=== PATIENT | female | born 1975 | race Caucasian/White ===

== ENCOUNTER 2022-01-30 10:58 | Emergency (ER) | payer BC, OTHER ==
[2022-01-30 11:22] LABS: Urine Blood 3+ (Negative); Urine Glucose Trace (Negative); Urine Protein 3+ (Negative); Urine pH 5.5 (5.0-7.0)
[2022-01-30] MEDS ORDERED: PHENAZOPYRIDINE 100MG TAB PO ONE (11:35)
[2022-01-30] MEDS ORDERED: CEFTRIAXONE 1000 MG/VIAL ONE (11:36)
[2022-01-30] MEDS ORDERED: MORPHINE 4 MG/ML SYR ONE ×2 (11:36→12:49)
[2022-01-30] MEDS ORDERED: NA CHLORIDE 0.9% 1,000 ML ONE (11:37)
[2022-01-30] MEDS ORDERED: FAMOTIDINE 20 MG/2 ML VIAL IV ONE (11:37)
[2022-01-30] MEDS ORDERED: ONDANSETRON 4 MG/2 ML VIAL ONE (11:37)
[2022-01-30] MEDS ORDERED: NA CHLORIDE 0.9% 50 ML ONE (11:37)
[2022-01-30 11:38] LABS: Absolute Lymphocytes (CBC) 3.6 K/uL (0.7-4.9); Hematocrit 43.8 % (36.0-45.0); Lymphocytes % 26.3 % (15.3-44.8); MPV 8.6 fL (7.6-11.3); RBC Red Blood Cell Count 5.14 M/uL (3.86-4.86)
[2022-01-30 11:53] LABS: Albumin 3.8 g/dL (3.4-5.0); Bilirubin Total 0.3 mg/dL (0.2-1.0); Potassium 3.7 mmol/L (3.5-5.1); Protein, Total 7.8 g/dL (6.4-8.2)
[2022-01-30] MEDS ORDERED: HYDROMORPHONE HCL 1 MG/ML INJ ONE (13:26)
--- NOTE | 2022-01-30 13:49 | RAD REPORT ---
EXAM DESCRIPTION: CT - Stone Protocol - 01/30/2022 1:38 pm CLINICAL HISTORY: Flank pain. Abdominal pain, acute, nonlocalized COMPARISON: CT ABD PELVIS W CONTRAST dated 01/10/2012 TECHNIQUE: Axial images were obtained without oral or IV contrast. Lack of contrast limits solid org an and vascular assessment. The [id number] spans the entirety of the system partially obscuring uppermost abdomen and lung bases. Coronal reformatted images were obtained and reviewed. All CT scans are performed using dose optimization technique as appropriate and may include automated exposure control or mA/KV adjustment according to patient size. FINDINGS: The lower lung dolan are clear. Cholecystectomy. Imaged portions of the liver and spleen show no suspicious findings on non-contrast imaging. The panc reas and adrenal glands are normal. No pathologic lymphadenopathy in the abdomen or pelvis. Tiny punctate calculus inferior left kidney. No hydronephrosis. Small fat containing ventral hernia s upraumbilical region. No bowel obstruction, free air, free fluid or abscess. Normal appendix noted.Urinary bladder is incom pletely distended. No significant bony abnormality. IMPRESSION: Tiny punctate left renal calculus. No hydronephrosis.
[2022-01-30] MEDS ORDERED: HYDROMORPHONE HCL 2 MG/ML inj ONE (14:58)
[2022-01-30] MEDS ORDERED: NA CHLORIDE 0.9% 100 ML ONE (14:58)
--- NOTE | 2022-01-30 15:35 | RAD REPORT ---
EXAM DESCRIPTION: CTAbdomen Pelvis W Contrast - 01/30/2022 3:29 pm CLINICAL HISTORY: Abdominal pain. Abdominal pain, acute, nonlocalized COMPARISON: Extrem Venous W Compress Kvng dated 10/26/2021T ABD PELVIS W CONTRAST dated 01/10/2012 TECHNIQUE: Biphasic CT imaging of the abdomen and pelvis was performed with 100 ml non-ionic IV cont rast. All CT scans are performed using dose optimization technique as appropriate and may include automated exposure control or mA/KV adjustment according to patient size. FINDINGS: The lung bases are clear.Cholecystectomy. The liver, spleen, pancreas, adrenal glands and kidneys are within normal limits. No bowel obstruction, free air, free fluid or abscess. Small fat containing ventral hernia is noted. The appendix is normal. No evidence of significant lymphadenopathy. No suspicious bony findings. IMPRESSION: No acute intra-abdominal or pelvic finding.
[2022-01-30] MEDS ORDERED: DIPHENHYDRAMINE 50 MG/ML VIAL ONE ×2 (16:09→17:19)
--- NOTE | 2022-01-30 17:19 | ER ---
Nurse's Notes [facility] Name: Jil Gerardo Age: 47 yrs Sex: Female : 1975 Arrival Date: 01/30/2022 Time: 11:00 Bed 7 Private MD: Diagnosis: Acute cystitis;Gross hematuria;Hematuria, unspecified;UTI/ Urinary tract infection, site not specified;Left renal calculus without hydronephrosis Presentation: 01/30 11:08 Chief complaint: Patient states: UTI and blood in urine this morning, denies back pain, iw reports suprapubic pain , pt shaking in triage. Coronavirus screen: At this time, the client does not indicate any symptoms associated with coronavirus-19. Ebola Screen: Patient negative for fever greater than or equal to 101.5 degrees Fahrenheit, and additional compatible Ebola Virus Disease symptoms Patient denies exposure to infectious person. Patient denies travel to an Ebola-affected area in the 21 days before illness onset. No symptoms or risks identified at this time. Initial Sepsis Screen: Does the patient meet any 2 criteria? Does the patient have a suspected source of infection? No. Patient's initial sepsis screen is negative. Risk Assessment: Do you want to hurt yourself or someone else? Patient reports no desire to harm self or others. Onset of symptoms was January 30, 2022. 11:08 Method Of Arrival: Ambulatory iw 11:08 Acuity: KULDIP 3 iw Historical: - Allergies: 11:09 No Known Allergies; iw - Home Meds: 11:09 tramadol Oral [Active]; citalopram oral [Active]; iw - PMHx: 11:09 Fibromyalgia; iw - PSHx: 11:09 section; partial hysterectomy; Cholecystectomy; Tonsillectomy; iw - Immunization history:: Adult Immunizations up to date. - Social history:: Smoking status: unknown. Screenin:43 Abuse screen: Denies threats or abuse. Nutritional screening: No deficits noted. jd3 Tuberculosis screening: No symptoms or risk factors identified. Fall Risk IV access (20 points). Ambulatory Aid- None/Bed Rest/Nurse Assist (0 pts). Gait- Normal/Bed Rest/Wheelchair (0 pts) Mental Status- Oriented to own ability (0 pts). Total Wilson Fall Scale indicates No Risk (0-24 pts). Assessment: 11:41 General: Appears uncomfortable, Behavior is cooperative, appropriate for age, anxious. jd3 Pain: Complains of pain in suprapubic area Quality of pain is described as sharp, shooting, stabbing, tender. Neuro: Jones Agitation-Sedation Scale (RASS): +1 Restless Level of Consciousness is awake, alert, obeys commands, Oriented to person, place, time, situation. Cardiovascular: Denies chest pain, Capillary refill < 3 seconds Patient's skin is warm and dry. Respiratory: Airway is patent Respiratory effort is even, unlabored, Respiratory pattern is regular, symmetrical, Denies cough, shortness of breath. GI: Abdomen is non-distended, Abd is soft X 4 quads Abdomen is tender to palpation in suprapubic area, right lower quadrant and left lower quadrant Reports lower abdominal pain, nausea. : Urine is blood tinged, Reports burning with urination, cramping, pain in suprapubic area with urination, urgency. EENT: No signs and/or symptoms were reported regarding the EENT system. Derm: Skin is intact, Skin is dry, Skin is normal, Skin temperature is warm. Musculoskeletal: Circulation, motion, and sensation intact. Range of motion: intact in all extremities. 11:50 Reassessment: Patient and/or family updated on plan of care and expected duration. Pain jd3 level reassessed. Patient is alert, oriented x 3, equal unlabored respirations, skin warm/dry/pink. pt reports medications starting to take the edge off of the pain. 12:48 Reassessment: Patient and/or family updated on plan of care and expected duration. Pain jd3 level reassessed. Patient is alert, oriented x 3, equal unlabored respirations, skin warm/dry/pink. pt reporting sharp pain that started in the left flank. pt reported pain is a stabbing pain that comes around to the front of her abdomen. 13:25 Reassessment: Patient appears in no apparent distress at this time. Patient and/or jd3 family updated on plan of care and expected duration. Pain level reassessed. Patient is alert, oriented x 3, equal unlabored respirations, skin warm/dry/pink. pt reporting pain returning again, provider notified. 14:16 Reassessment: Patient appears in no apparent distress at this time. Patient and/or jd3 family updated on plan of care and expected duration. Pain level reassessed. Patient is alert, oriented x 3, equal unlabored respirations, skin warm/dry/pink. Patient states feeling better. 16:41 Reassessment: Patient appears in no apparent distress at this time. Patient and/or jd3 family updated on plan of care and expected duration. Pain level reassessed. Patient is alert, oriented x 3, equal unlabored respirations, skin warm/dry/pink. Vital Signs: 11:08 BP 160 / 95; Pulse 130; Resp 18 S; Temp 96.5; Pulse Ox 97% on R/A; Weight 90.72 kg; iw Height 5 ft. 6 in. (167.64 cm); 12:48 BP 147 / 61; Pulse 105; Resp 18 S; Pulse Ox 99% on R/A; jd3 13:25 BP 121 / 77; Pulse 97; Resp 18 S; Pulse Ox 99% on R/A; jd3 16:42 BP 149 / 79; Pulse 93; Resp 18 S; Pulse Ox 99% on R/A; jd3 11:08 Body Mass Index 32.28 (90.72 kg, 167.64 cm) ED Course: 11:00 Patient arrived in ED. am2 11:01 Pablo Hyde MD is Attending Physician. kdr 11:09 Triage completed. iw 11:26 More Lackey, RN is Primary Nurse. jl7 11:27 Julio Andrews, RN is Primary Nurse. jd3 11:31 Initial lab(s) drawn, by va, sent to lab. Inserted saline lock: 20 gauge in right jl7 antecubital area, using aseptic technique. Blood collected. 11:40 Arm band placed on. jd3 11:44 Patient has correct armband on for positive identification. Bed in low position. Call j light in reach. Side rails up X 1. Adult w/ patient. Pulse ox on. NIBP on. 11:50 Urine Culture Sent. jd3 11:51 Julio Andrews, RN is Primary Nurse. jd3 13:34 Assisted to bathroom. jd3 13:40 Stone Protocol In Process Unspecified. EDMS 15:30 CT Abd/Pelvis - IV Contrast Only In Process Unspecified. EDMS 17:43 No provider procedures requiring assistance completed. IV discontinued, intact, jl7 bleeding controlled, No redness/swelling at site. Pressure dressing applied. Administered Medications: 11:39 Drug: NS 0.9% 1000 ml Route: IV; Rate: 1 bolus; Site: right antecubital; jd3 13:23 Follow up: Response: No adverse reaction; IV Status: Completed infusion jd3 11:39 Drug: Pepcid (famotidine) 20 mg Route: IVP; Site: right antecubital; jd3 13:23 Follow up: Response: No adverse reaction jd3 11:39 Drug: morphine 4 mg Route: IVP; Infused Over: 4 mins; Site: right antecubital; jd3 12:30 Follow up: Response: No adverse reaction; RASS: Alert and Calm (0) jd3 11:39 Drug: Pyridium (phenazopyridine) 200 mg Route: PO; jd3 13:24 Follow up: Response: No adverse reaction jd3 11:40 Drug: Zofran (Ondansetron) 4 mg Route: IVP; Site: right antecubital; jd3 12:40 Follow up: Response: No adverse reaction jd3 11:45 Drug: Rocephin - (cefTRIAXone) 1 grams Route: IVPB; Infused Over: 30 mins; Site: right [facility] antecubital; 12:00 Follow up: Response: No adverse reaction; IV Status: Completed infusion jd3 12:48 Drug: morphine 4 mg Route: IVP; Infused Over: 2 mins; Site: right antecubital; jd3 13:24 Follow up: Response: No adverse reaction; RASS: Restless (+1) jd3 13:23 Drug: Dilaudid (HYDROmorphone) 1 mg Route: IVP; Site: right antecubital; jd3 14:20 Follow up: Response: No adverse reaction; RASS: Alert and Calm (0) jd3 14:58 Drug: Dilaudid (HYDROmorphone) 2 mg Route: IVP; Site: right antecubital; jd3 16:16 Follow up: Response: No adverse reaction jd3 16:05 Drug: Benadryl (diphenhydrAMINE) 25 mg Route: IVP; Site: right antecubital; jd3 17:00 Follow up: Response: No adverse reaction jd3 17:15 Drug: Benadryl (diphenhydrAMINE) 25 mg Route: IVP; Site: right antecubital; jd3 Medication: 11:43 VIS not applicable for this client. jd3 Outcome: 17:18 Discharge ordered by . kdr 17:43 Discharged to home via wheelchair, with family. jl7 17:43 Condition: stable 17:43 Discharge instructions given to patient, family, Instructed on discharge instructions, follow up and referral plans. medication usage, Demonstrated understanding of instructions, follow-up care, medications, Prescriptions given X 4. 17:43 Patient left the ED. jl7 Signatures: Dispatcher [employer] EDMS Pablo Hyde MD MD kdr Zuleima Callaway RN RN iw More Lackey RN RN jl7 Salma Oconnell Jonathon, RN RN jd3 Corrections: (The following items were deleted from the chart) 13:24 13:24 Response: No adverse reaction; RASS: Alert and Calm (0) jd3 jd3 14:17 14:16 Reassessment: Patient appears in no apparent distress at this time. No changes jd3 from previously documented assessment. Patient and/or family updated on plan of care and expected duration. Pain level reassessed. Patient is alert, oriented x 3, equal unlabored respirations, skin warm/dry/pink. jd3
--- NOTE | 2022-01-30 17:19 | EDPHYS ---
Physician Documentation [facility] Name: Jil Gerardo Age: 47 yrs Sex: Female : 1975 Arrival Date: 01/30/2022 Time: 11:00 Bed 7 Private MD: ED Physician Pablo Hyde HPI: 01/30 18:04 This 47 yrs old Female presents to ER via Ambulatory with complaints of Pain With kdr Urination, blood in urine. 13:57 Patient complains of hematuria that began this morning. She denies any other associated kdr pain. She has had some nausea but no vomiting. She reports that she is also having some suprapubic pain. In triage the patient was very tremulous. She has not had this before. While she appears uncomfortable, she does not appear toxic. Her mental status is appropriate.. Onset: The symptoms/episode began/occurred this morning. Severity of symptoms: At their worst the symptoms were severe incapacitating in the emergency department the symptoms have improved mildly. The patient has experienced similar episodes in the past, a few times. The patient has not recently seen a physician. Historical: - Allergies: 11:09 No Known Allergies; iw - Home Meds: 11:09 tramadol Oral [Active]; citalopram oral [Active]; iw - PMHx: 11:09 Fibromyalgia; iw - PSHx: 11:09 section; partial hysterectomy; Cholecystectomy; Tonsillectomy; iw - Immunization history:: Adult Immunizations up to date. - Social history:: Smoking status: unknown. ROS: 13:57 Constitutional: Negative for fever, chills, and weight loss, Eyes: Negative for injury, kdr pain, redness, and discharge, Neck: Negative for injury, pain, and swelling, Cardiovascular: Negative for chest pain, palpitations, and edema, Respiratory: Negative for shortness of breath, cough, wheezing, and pleuritic chest pain, Back: Negative for injury and pain, MS/Extremity: Negative for injury and deformity, Skin: Negative for injury, rash, and discoloration, Neuro: Negative for headache, weakness, numbness, tingling, and seizure activity. Psych: Negative for depression, anxiety, suicide ideation, homicidal ideation, and hallucinations, Allergy/Immunology: Negative for hives, rash, and allergies, Endocrine: Negative for neck swelling, polydipsia, polyuria, polyphagia, and marked weight changes, Hematologic/Lymphatic: Negative for swollen nodes, abnormal bleeding, and unusual bruising. 13:57 Abdomen/GI: Positive for abdominal pain, nausea, of the suprapubic area, Negative for abdominal cramps, abdominal distension, anorexia, dysphagia, hematemesis, black/tarry stool, rectal pain. Exam: 13:57 Constitutional: This is a well developed, well nourished patient who is awake, alert, kdr and in moderate distress. Head/Face: Normocephalic, atraumatic. Eyes: Pupils equal round and reactive to light, extra-ocular motions intact. Lids and lashes normal. Conjunctiva and sclera are non-icteric and not injected. Cornea within normal limits. Periorbital areas with no swelling, redness, or edema. Neck: Trachea midline, no thyromegaly or masses palpated, and no cervical lymphadenopathy. Supple, full range of motion without nuchal rigidity, or vertebral point tenderness. No Meningismus. Chest/axilla: Normal chest wall appearance and motion. Nontender with no deformity. No lesions are appreciated. Cardiovascular: Regular rate and rhythm with a normal S1 and S2. No gallops, murmurs, or rubs. Normal PMI, no JVD. No pulse deficits. Respiratory: Lungs have equal breath sounds bilaterally, clear to auscultation and percussion. No rales, rhonchi or wheezes noted. No increased work of breathing, no retractions or nasal flaring. Back: No spinal tenderness. No costovertebral tenderness. Full range of motion. Skin: Warm, dry with normal turgor. Normal color with no rashes, no lesions, and no evidence of cellulitis. MS/ Extremity: Pulses equal, no cyanosis. Neurovascular intact. Full, normal range of motion. Neuro: Awake and alert, GCS 15, oriented to person, place, time, and situation. Cranial nerves II-XII grossly intact. Motor strength 5/5 in all extremities. Sensory grossly intact. Cerebellar exam normal. Normal gait. Psych: Awake, alert, with orientation to person, place and time. Behavior, mood, and affect are within normal limits. 13:57 Abdomen/GI: Inspection: abdomen appears normal, obese Bowel sounds: active, all quadrants, Palpation: soft, in all quadrants, nontender, in all quadrants, mild abdominal tenderness, in the suprapubic area. Vital Signs: 11:08 BP 160 / 95; Pulse 130; Resp 18 S; Temp 96.5; Pulse Ox 97% on R/A; Weight 90.72 kg; iw Height 5 ft. 6 in. (167.64 cm); 12:48 BP 147 / 61; Pulse 105; Resp 18 S; Pulse Ox 99% on R/A; jd3 13:25 BP 121 / 77; Pulse 97; Resp 18 S; Pulse Ox 99% on R/A; jd3 16:42 BP 149 / 79; Pulse 93; Resp 18 S; Pulse Ox 99% on R/A; jd3 11:08 Body Mass Index 32.28 (90.72 kg, 167.64 cm) iw MDM: 13:57 Data reviewed: vital signs, nurses notes, lab test result(s), radiologic studies. kdr Counseling: I had a detailed discussion with the patient and/or guardian regarding: the historical points, exam findings, and any diagnostic results supporting the discharge/admit diagnosis, lab results, radiology results. 17:18 Patient medically screened. [facility] 01/30 11:01 Order name: Urine Culture [facility] 01/30 11:22 Order name: Urine Dipstick-Ancillary; Complete Time: 12:43 [facility] 01/30 11:25 Order name: Urine --Ancillary (enter results); Complete Time: 12:43 01/30 11:25 Order name: CBC with Diff; Complete Time: 12:43 [facility] 01/30 11:25 Order name: CMP; Complete Time: 12:43 [facility] 01/30 11:25 Order name: Lipase; Complete Time: 12:43 [facility] 01/30 12:53 Order name: Stone Protocol; Complete Time: 14:33 [facility] 01/30 14:59 Order name: CT Abd/Pelvis - IV Contrast Only; Complete Time: 15:54 [facility] 01/30 11:01 Order name: Urine Dipstick-Ancillary (obtain specimen); Complete Time: 11:27 [facility] 01/30 11:01 Order name: Urine Test (obtain specimen); Complete Time: 11:27 [facility] 01/30 11:25 Order name: IV Saline Lock; Complete Time: 11:31 [facility] 01/30 11:25 Order name: Labs collected and sent; Complete Time: 11:31 kdr Administered Medications: 11:39 Drug: NS 0.9% 1000 ml Route: IV; Rate: 1 bolus; Site: right antecubital; jd3 13:23 Follow up: Response: No adverse reaction; IV Status: Completed infusion jd3 11:39 Drug: Pepcid (famotidine) 20 mg Route: IVP; Site: right antecubital; jd3 13:23 Follow up: Response: No adverse reaction jd3 11:39 Drug: morphine 4 mg Route: IVP; Infused Over: 4 mins; Site: right antecubital; jd3 12:30 Follow up: Response: No adverse reaction; RASS: Alert and Calm (0) jd3 11:39 Drug: Pyridium (phenazopyridine) 200 mg Route: PO; jd3 13:24 Follow up: Response: No adverse reaction jd3 11:40 Drug: Zofran (Ondansetron) 4 mg Route: IVP; Site: right antecubital; jd3 12:40 Follow up: Response: No adverse reaction jd3 11:45 Drug: Rocephin - (cefTRIAXone) 1 grams Route: IVPB; Infused Over: 30 mins; Site: right [facility] antecubital; 12:00 Follow up: Response: No adverse reaction; IV Status: Completed infusion jd3 12:48 Drug: morphine 4 mg Route: IVP; Infused Over: 2 mins; Site: right antecubital; jd3 13:24 Follow up: Response: No adverse reaction; RASS: Restless (+1) jd3 13:23 Drug: Dilaudid (HYDROmorphone) 1 mg Route: IVP; Site: right antecubital; jd3 14:20 Follow up: Response: No adverse reaction; RASS: Alert and Calm (0) jd3 14:58 Drug: Dilaudid (HYDROmorphone) 2 mg Route: IVP; Site: right antecubital; jd3 16:16 Follow up: Response: No adverse reaction jd3 16:05 Drug: Benadryl (diphenhydrAMINE) 25 mg Route: IVP; Site: right antecubital; jd3 17:00 Follow up: Response: No adverse reaction jd3 17:15 Drug: Benadryl (diphenhydrAMINE) 25 mg Route: IVP; Site: right antecubital; jd3 Disposition Summary: 01/30/22 17:18 Discharge Ordered Location: Home kdr Problem: new kdr Symptoms: have improved kdr Condition: Stable kdr Diagnosis - Acute cystitis kdr - Gross hematuria kdr - Hematuria, unspecified kdr - UTI/ Urinary tract infection, site not specified kdr - Left renal calculus without hydronephrosis kdr Followup: kdr - With: Private Physician - When: 2 - 3 days - Reason: If symptoms return, Further diagnostic work-up, Recheck today's complaints, Continuance of care, Re-evaluation by your physician Discharge Instructions: - Discharge Summary Sheet kdr - Hematuria, Adult kdr - Kidney Stones, [id number] kdr - Urinary Tract Infection, Adult, [id number] kdr - Flank Pain, Adult, [id number] kdr Forms: - Medication Reconciliation Form kdr - Thank You Letter kdr - Antibiotic Education kdr - Prescription Opioid Use kdr Prescriptions: - Cipro 500 mg Oral Tablet - take 1 tablet by ORAL route every 12 hours for 10 days; 20 tablet; Refills: 0, kdr Product Selection Permitted - Zofran 4 mg Oral Tablet - take 1 tablet by ORAL route every 12 hours As needed; 6 tablet; Refills: 0, kdr Product Selection Permitted - Tylenol-Codeine #3 300 mg-30 mg Oral - take 1 tablet by ORAL route every 4-6 hours As needed One or two tabs every 4-6 kdr hours as needed for pain - use these directions please; 16 tablet; Refills: 0, Product Selection Permitted - Pyridium 200 mg Oral Tablet - take 1 tablet by ORAL route every 8 hours for 3 days; 9 tablet; Refills: 0, kdr Product Selection Permitted Signatures: Dispatcher [employer] EDMS Pablo Hyde MD MD kdr Zuleima Callaway RN RN iw Julio Andrews RN RN jd3 Corrections: (The following items were deleted from the chart) 12:53 12:44 Abdomen Pelvis W Con+CT.RAD.BRZ ordered. EDNV EDMS
[2022-01-30 17:54] VITALS: TEMP 96.5
[2022-01-30 17:55] VITALS: O2SAT 99
[2022-01-30 17:58] VITALS: BP 149/79
== END 2022-01-30 17:43 | disposition home or self-care (01) ==
LOC: ER 10:58
DX: N30.00 Acute cystitis without hematuria (principal); N20.0 Calculus of kidney
CPT/HCPCS: 96361; 87088; 85025; 87086; 36415; 81025; 81003; 83690; 80053; 76377; 74176; 74177; 96375; 96374; 99284; Q9967; J1200 ×2; J1170 ×2; J7030; J2405; J3490